=== PATIENT | female | born 1945 | race Caucasian/White ===

== ENCOUNTER 2018-03-27 06:17 | Day surgery (SDC) | payer OTHER ==
[2018-03-27] MEDS ORDERED: DIAZEPAM 5 MG TAB PO ONE (06:19)
[2018-03-27] MEDS ORDERED: diphenhydrAMINE 25 MG CAP PO ONE (06:19)
[2018-03-27] MEDS ORDERED: FAMOTIDINE 20 MG TAB PO ONE (06:19)
[2018-03-27] MEDS ORDERED: ASPIRIN EC 325 MG TAB PO ONE (06:19)
[2018-03-27] MEDS ORDERED: NS 1,000 ML IV ONE (06:19)
[2018-03-27 06:54] LABS: PLATELET COUNT 359 10^3/uL (150-400)
[2018-03-27] MEDS ORDERED: LIDOCAINE 1% 300 MG/30 ML SDV ONE (06:57)
[2018-03-27] MEDS ORDERED: fentaNYL 100 MCG/2 ML INJ ONE (06:57)
[2018-03-27] MEDS ORDERED: IOPAMIDOL (ISOVUE-370) 150 ML BTL IV ONE (06:58)
[2018-03-27] MEDS ORDERED: MIDAZOLAM 2 MG/2 ML VIAL ONE (06:58)
[2018-03-27 07:02] LABS: INR 0.92 (0.83-1.16); PROTIME(PATIENT) 12.6 SEC (12.0-15.0)
--- NOTE | 2018-03-27 07:16 | PDHPUP ---
History & Physical Update H&P update statement: This history and physical update is based on an assessment of the patient which was completed after admission or registration (within 24 hours), but prior to the surgery/procedure. H&P update: H&P reviewed & patient examined, no change in patient's condition since H&P completed
--- NOTE | 2018-03-27 07:17 | PDPROPOC ---
Sedation Plan of Care Sedation Plan of Care: mental status noted, patient educated of risks, benefits , alternatives, patient can tolerate sedation ASA Classification: ASA 3 Planned drugs: fentanyl, midazolam Mallampati Score: Class 3 Mallampati Reference Image: Patient passed 3-3-2 rule?: Yes
[2018-03-27] MEDS ORDERED: OXYCODONE/APAP 5/325 TAB PO PRN (07:53)
[2018-03-27] MEDS ORDERED: HYDROCODONE/APAP 5/325 TAB PO PRN (07:53)
[2018-03-27] MEDS ORDERED: NITROGLYCERIN 0.4 MG BTL SL PRN (07:53)
[2018-03-27] MEDS ORDERED: ATROPINE SULFATE 1 MG/10 ML SYR IVP PRN (07:53)
[2018-03-27] MEDS ORDERED: ONDANSETRON 4 MG/2 ML VIAL IVP PRN (07:53)
--- NOTE | 2018-03-27 08:58 | CPIP ---
DATE OF PROCEDURE: 03/27/2018 INDICATION FOR PROCEDURE: Shortness of breath. PROCEDURE: 1. Nonselective right groin sheathogram. 2. 7-Andorran sheath in the right common femoral vein. 3. Bilateral selective coronary angiography. 4. Left heart catheterization. 5. Right Marlinton-Nic catheter with right heart catheterization. HISTORY: Briefly, this is a 72-year-old female with history of worsening dyspnea on exertion. The p atient had progression over the last 2 years despite medical therapy and pulmonary therapies. The pa tient was consented for right and left heart catheterization for further evaluation. DESCRIPTION OF PROCEDURE: After informed consent, the patient was brought to [facility] where the right eli in was prepped and draped in sterile fashion. Using lidocaine, a short 6-Andorran sheath in the right common femoral artery verified angiographically. 7-Andorran sheath in the right common femoral vein. Marlinton-Nic catheter was advanced. Wedge pressure mean of 24, A-wave of 33, V-wave 28, PA pressure sys tolic 47, diastolic 25, mean of 32. RV pressure systolic 48, diastolic 10, end of 22. RA pressure m louisa of 16 , A-wave 23, V-wave 19. Cardiac output was measured to be 5.7 by Finn with a cardiac index of 2.6. AO sat was 96%. PA sat was 76%. Marlinton-Nic catheter was then removed. A JL4 catheter was advanced to the left coronary artery. Images of the left coronary artery revealed normal left main. Left circumflex gave off a marginal 1 proximally, distally had a marginal 2 arter y and appeared to be healthy free of disease. The LAD was a serpiginous vessel, which extended down to the apex, which was healthy and free of disease. There was a high diagonal artery actually the ba ck that was healthy and free of disease. After these images were obtained, the JL4 catheter was leatha cassandra. A JR4 catheter advanced to the right coronary artery. Images of the right coronary artery reve aled normal os, prox, mid, distal RCA. RPD and RPLS appeared to be healthy and free of disease. Aft er these images were obtained, the JR4 catheter was removed. The pigtail catheter was advanced to the left ventricle. EDP is 25 mmHg. Left ventriculogram in the BAZAN projection showed an EF of 65% with no wall motion abnormality. There was no pullback gradient between the LV and the aorta. The pigtail catheter was removed over an 0.035 wire. Right groin was closed with 6-Andorran Angio-Seal. 7-Andorran sheath was closed with manual pressure. Patient tolerated the procedure well with no complications. IMPRESSION: 1. Essentially normal coronary arteries. 2. Moderate pulmonary hypertension. 3. Normal cardiac output. 4. Elevated left ventricular end-diastolic pressure with normal ejection fraction. PLAN: The patient appears to have a moderate pulmonary hypertension and evidence of diastolic dysfun ction by her normal EF and elevated EDP. We will continue with aggressive medical therapy with her s leep apnea with her CPAP, as well as aggressive blood pressure control. The patient will be discharg ed home later today. /[id number]/MODL
--- NOTE | 2018-03-27 11:02 | CPEKG ---
Test Reason : OPEN Blood Pressure : / mmHG Vent. Rate : 089 BPM Atrial Rate : 089 BPM P-R Int : 123 ms QRS Dur : 087 ms QT Int : 384 ms P-R-T Axes : 057 070 031 degrees QTc Int : 468 ms Sinus rhythm Confirmed by Costa Cook ([id number]) on 03/27/2018 11:01:56 AM Referred By: Confirmed By:Costa Cook
--- NOTE | 2018-03-28 23:03 | CPEKG ---
Test Reason : OPEN Blood Pressure : / mmHG Vent. Rate : 089 BPM Atrial Rate : 089 BPM P-R Int : 123 ms QRS Dur : 087 ms QT Int : 384 ms P-R-T Axes : 057 070 031 degrees QTc Int : 468 ms Sinus rhythm Early repolarization Confirmed by Costa Cook ([id number]) on 03/28/2018 11:03:01 PM Referred By: Confirmed By:Costa Cook
== END 2018-03-27 11:34 | disposition home or self-care (01) ==
LOC: FCATH 06:17
PROVIDERS: ATTEND Internal Medicine Cardiovascular Disease
PROC: B2111ZZ Fluoroscopy of Multiple Coronary Arteries using Low Osmolar Contrast (ICD-10-PCS; principal; 2018-03-27)
PROC: 4A023N8 Measurement of Cardiac Sampling and Pressure, Bilateral, Percutaneous Approach (ICD-10-PCS; principal; 2018-03-27)
PROC: B2151ZZ Fluoroscopy of Left Heart using Low Osmolar Contrast (ICD-10-PCS; principal; 2018-03-27)
DX: I27.21 Secondary pulmonary arterial hypertension (principal); J43.9 Emphysema, unspecified; I10 Essential (primary) hypertension; G47.33 Obstructive sleep apnea (adult) (pediatric)
CPT/HCPCS: C1760; J1644; J2250; J2270; J3010; Q9967